=== PATIENT | female | born 1945 | race Two or more races ===

== ENCOUNTER 2021-12-27 21:03 | Inpatient (IN) | payer BC, MEDICARE ==
[~2021-12-27] VITALS: Ht 157.5 cm; Wt 51.7 kg
[2021-12-27 23:03] LABS: BASOPHILS % 0.6 % (0.0-2.0); EOSINOPHILS % 2.4 % (0.0-5.0); HEMATOCRIT. 35.8 % (36.0-48.0); HEMOGLOBIN. 11.4 g/dL (12.0-16.0); LYMPHOCYTES % 11.2 % (20.0-50.0); MEAN CORPUSCULAR HEMOGLOBIN 28.5 pg (28.0-32.0); MEAN CORPUSCULAR VOLUME 89.5 fL (81.0-99.0); MEAN PLATELET VOLUME 6.7 fl (7.4-10.4); MONOCYTES % 6.7 % (2.0-8.0); NEUTROPHILS % 79.1 % (40.0-76.0); PLATELET 322 x1000/uL (130-400); RED CELL DISTRIBUTION WIDTH 16.6 % (11.6-14.6)
[2021-12-27 23:11] LABS: CHLORIDE 101 mEq/L (98-107)
[2021-12-27 23:18] LABS: ETHANOL BLOOD < 10 mg/dL
[2021-12-28 01:45] LABS: *AMPHETAMINES SCREEN URINE NEGATIVE (NEGATIVE); *BARBITURATES SCREEN URINE NEGATIVE (NEGATIVE); *BENZODIAZEPINES SCREEN URINE NEGATIVE (NEGATIVE); *COCAINE SCREEN URINE NEGATIVE (NEGATIVE); CANNABINOID URINE SCREEN NEGATIVE (NEGATIVE); METHADONE URINE SCREEN NEGATIVE (NEGATIVE); OPIATES URINE SCREEN NEGATIVE (NEGATIVE); PHENCYCLIDINE URINE SCREEN NEGATIVE (NEGATIVE)
[2021-12-28] MEDS ORDERED: GUAIFENESIN 200MG/10ML SUGAR FREE UDC PO PRN (06:15)
[2021-12-28] MEDS ORDERED: ONDANSETRON HCL 4MG/2ML INJ IV PRN (06:15)
[2021-12-28] MEDS ORDERED: DOCUSATE SODIUM 100MG CAPSULE PO PRN (06:15)
[2021-12-28] MEDS ORDERED: NALOXONE HCL 0.4MG/ML VIAL IV PRN (06:30)
[2021-12-28 10:00] VITALS: BP 119/77
[2021-12-28] MEDS: ENOXAPARIN 40MG/0.4ML SYR SUBCUT SCH (10:53)
[2021-12-28] MEDS: HYDROCODONE/ACETAMINOPHEN 5/325MG TABLET PO PRN (10:53)
[2021-12-28] MEDS: AMLODIPINE 10MG TABLET PO SCH (10:54)
[2021-12-28] MEDS ORDERED: CEPH500C2 MT (11:44)
[2021-12-28] MEDS ORDERED: SUCR1TAB30 MT (11:44)
[2021-12-28] MEDS ORDERED: ASCO500C18 PO (11:44)
[2021-12-28] MEDS ORDERED: FLUT1DIS6 INH (11:44)
[2021-12-28] MEDS ORDERED: LEVO125T8 PO (11:44)
[2021-12-28] MEDS ORDERED: ASPI-1497 MT (11:44)
[2021-12-28] MEDS ORDERED: FLUO20TA29 PO (11:44)
[2021-12-28] MEDS ORDERED: LORA2ORA5 MT (11:44)
[2021-12-28] MEDS ORDERED: MONT10TA21 PO (11:44)
[2021-12-28] MEDS ORDERED: CARV3.1242 MT (11:44)
[2021-12-28] MEDS ORDERED: GABA-529 PO (11:44)
[2021-12-28] MEDS ORDERED: DOCU-138 MT (11:44)
[2021-12-28] MEDS ORDERED: MAGN250T10 PO (11:44)
[2021-12-28] MEDS ORDERED: BUPR300T52 MT (11:44)
[2021-12-28] MEDS ORDERED: LIP40 MT (11:44)
[2021-12-28] MEDS ORDERED: PROT40 MT (11:44)
[2021-12-28] MEDS ORDERED: UBID10CA4 MT (11:44)
[2021-12-28] MEDS ORDERED: IPRATROPIUM/ALBUTEROL 0.5-3(2.5)MG/3ML NEB HHN PRN (11:45)
[2021-12-28 12:00] VITALS: BP 115/80
[2021-12-28] MEDS: LEVETIRACETAM 500MG TABLET PO SCH ×2 (13:44→22:20)
[2021-12-28] MEDS: IPRATROPIUM/ALBUTEROL 0.5-3(2.5)MG/3ML NEB HHN PRN (14:11)
[2021-12-28 16:00] VITALS: BP 138/77
[2021-12-28 20:00] VITALS: BP 93/63
[2021-12-28] MEDS: TRAMADOL 50MG TABLET PO PRN (22:20)
[2021-12-28] MEDS: SODIUM CHLORIDE 0.45% 1,000 ML IV SCH (22:20)
[2021-12-29] VITALS: BP 116/69
[2021-12-29 04:00] VITALS: BP 119/65
[2021-12-29] MEDS: HYDROCODONE/ACETAMINOPHEN 5/325MG TABLET PO PRN ×2 (04:34→21:39)
[2021-12-29 06:50] LABS: BASOPHILS % 1.1 % (0.0-2.0); EOSINOPHILS % 3.2 % (0.0-5.0); HEMATOCRIT. 33.3 % (36.0-48.0); HEMOGLOBIN. 10.9 g/dL (12.0-16.0); MEAN CORPUSCULAR VOLUME 88.8 fL (81.0-99.0); MEAN PLATELET VOLUME 7.2 fl (7.4-10.4); MONOCYTES % 8.4 % (2.0-8.0); NEUTROPHILS % 72.3 % (40.0-76.0); PLATELET 300 x1000/uL (130-400); RED BLOOD CELL COUNT 3.75 mill/uL (4.2-5.4); RED CELL DISTRIBUTION WIDTH 17.8 % (11.6-14.6)
[2021-12-29 07:06] LABS: CHLORIDE 103 mEq/L (98-107)
[2021-12-29 07:20] LABS: HDL CHOLESTEROL 50 mg/dL (40-59); LDL CHOLESTEROL 72 mg/dL (5-100)
[2021-12-29 07:32] LABS: VITAMIN B12 SERUM 627 pg/mL (211-911)
[2021-12-29 07:52] VITALS: BP 125/67
[2021-12-29] MEDS: LEVETIRACETAM 500MG TABLET PO SCH ×2 (09:14→20:10)
[2021-12-29] MEDS: ENOXAPARIN 40MG/0.4ML SYR SUBCUT SCH (09:14)
[2021-12-29] MEDS: AMLODIPINE 10MG TABLET PO SCH (09:14)
[2021-12-29] MEDS: SODIUM CHLORIDE 0.45% 1,000 ML IV SCH ×2 (09:15→22:15)
[2021-12-29 12:00] VITALS: BP 101/51
[2021-12-29] MEDS ORDERED: MELA3TAB71 PO (14:34)
[2021-12-29] MEDS ORDERED: KEPP500 PO (14:34)
[2021-12-29 16:00] VITALS: BP 122/68
[2021-12-29 17:22] LABS: T4 FREE 1.33 ng/dL (0.76-1.46)
[2021-12-29 20:00] VITALS: BP 112/67
[2021-12-29] MEDS: IPRATROPIUM/ALBUTEROL 0.5-3(2.5)MG/3ML NEB HHN PRN (22:04)
[2021-12-30] VITALS: BP 110/63
[2021-12-30] MEDS: ACETAMINOPHEN 325MG TABLET PO PRN ×2 (05:52→10:19)
[2021-12-30 08:00] VITALS: BP 120/69
[2021-12-30] MEDS: AMLODIPINE 10MG TABLET PO SCH (09:02)
[2021-12-30] MEDS: LEVETIRACETAM 500MG TABLET PO SCH ×2 (09:02→20:25)
[2021-12-30] MEDS: ENOXAPARIN 40MG/0.4ML SYR SUBCUT SCH (09:03)
[2021-12-30 12:00] VITALS: BP 114/66
[2021-12-30] MEDS: TRAMADOL 50MG TABLET PO PRN ×2 (14:12→20:26)
[2021-12-30] MEDS: IPRATROPIUM/ALBUTEROL 0.5-3(2.5)MG/3ML NEB HHN PRN (14:50)
[2021-12-30 16:00] VITALS: BP 110/67
[2021-12-30 20:00] VITALS: BP 112/67
[2021-12-30] MEDS: TRAZODONE HCL 50MG TABLET PO SCH (20:25)
[2021-12-31] VITALS: BP 107/63
[2021-12-31] MEDS: HYDROCODONE/ACETAMINOPHEN 5/325MG TABLET PO PRN ×3 (00:33→20:47)
[2021-12-31 04:00] VITALS: BP 124/60
[2021-12-31] MEDS: IPRATROPIUM/ALBUTEROL 0.5-3(2.5)MG/3ML NEB HHN PRN (06:16)
[2021-12-31 08:00] VITALS: BP 119/64
[2021-12-31] MEDS ORDERED: DULOXETINE HCL 20MG DR CAPSULE PO SCH (09:00)
[2021-12-31] MEDS: ENOXAPARIN 40MG/0.4ML SYR SUBCUT SCH (09:56)
[2021-12-31] MEDS: LEVETIRACETAM 500MG TABLET PO SCH ×2 (09:56→20:44)
[2021-12-31] MEDS: AMLODIPINE 10MG TABLET PO SCH (09:57)
[2021-12-31] MEDS: MAGNESIUM/ALUMINUM HYDROXIDE/SIMETHICONE 30ML UDC PO PRN (11:25)
[2021-12-31 12:00] VITALS: BP 122/59
[2021-12-31] MEDS ORDERED: FLUOXETINE HCL 20MG CAPSULE PO SCH (15:00)
[2021-12-31] MEDS ORDERED: BUPROPION HCL 150MG TABLET XL 24HR PO SCH (15:00)
[2021-12-31 16:00] VITALS: BP 103/58
[2021-12-31] MEDS: MONTELUKAST SODIUM 10MG TABLET PO SCH (18:58)
[2021-12-31 20:00] VITALS: BP 115/85
[2021-12-31] MEDS: TRAZODONE HCL 50MG TABLET PO SCH (20:44)
[2022-01-01] VITALS: BP 123/84
[2022-01-01] MEDS: SODIUM CHLORIDE 0.45% 1,000 ML IV SCH ×2 (03:35→16:55)
[2022-01-01 04:00] VITALS: BP 110/72
[2022-01-01] MEDS: TRAMADOL 50MG TABLET PO PRN (06:51)
[2022-01-01 08:00] VITALS: BP 118/58
[2022-01-01] MEDS: LEVETIRACETAM 500MG TABLET PO SCH ×2 (08:40→22:15)
[2022-01-01] MEDS: PANTOPRAZOLE 40MG DR TABLET PO SCH (08:40)
[2022-01-01] MEDS: LEVOTHYROXINE SODIUM 125MCG TABLET PO SCH (08:40)
[2022-01-01] MEDS: AMLODIPINE 10MG TABLET PO SCH (08:40)
[2022-01-01] MEDS: ENOXAPARIN 30MG/0.3ML SYR SUBCUT SCH (08:41)
[2022-01-01] MEDS: GABAPENTIN 100MG CAPSULE PO SCH (08:43)
[2022-01-01 12:00] VITALS: BP 124/64
[2022-01-01 15:36] VITALS: BP 101/56
[2022-01-01] MEDS: HYDROCODONE/ACETAMINOPHEN 5/325MG TABLET PO PRN (15:38)
[2022-01-01] MEDS: MONTELUKAST SODIUM 10MG TABLET PO SCH (16:09)
[2022-01-01 20:00] VITALS: BP 111/61
[2022-01-01] MEDS: IPRATROPIUM/ALBUTEROL 0.5-3(2.5)MG/3ML NEB HHN PRN (20:57)
[2022-01-01] MEDS: TRAZODONE HCL 50MG TABLET PO SCH (22:15)
[2022-01-02] VITALS: BP 109/59
[2022-01-02] MEDS: HYDROCODONE/ACETAMINOPHEN 5/325MG TABLET PO PRN ×3 (01:27→20:53)
[2022-01-02 04:00] VITALS: BP 116/49
[2022-01-02] MEDS: SODIUM CHLORIDE 0.45% 1,000 ML IV SCH (05:46)
[2022-01-02] MEDS: PANTOPRAZOLE 40MG DR TABLET PO SCH (06:24)
[2022-01-02] MEDS: LEVOTHYROXINE SODIUM 125MCG TABLET PO SCH (06:24)
[2022-01-02 08:00] VITALS: BP 131/65
[2022-01-02] MEDS: ENOXAPARIN 30MG/0.3ML SYR SUBCUT SCH (09:59)
[2022-01-02] MEDS: LEVETIRACETAM 500MG TABLET PO SCH ×2 (09:59→20:52)
[2022-01-02] MEDS: GABAPENTIN 100MG CAPSULE PO SCH (09:59)
[2022-01-02] MEDS: AMLODIPINE 10MG TABLET PO SCH (09:59)
[2022-01-02 11:59] VITALS: BP 109/61
[2022-01-02] MEDS ORDERED: NALOXONE HCL 0.4MG/ML VIAL IV PRN (12:15)
[2022-01-02 16:00] VITALS: BP 102/48
[2022-01-02] MEDS: MONTELUKAST SODIUM 10MG TABLET PO SCH (17:56)
[2022-01-02 20:00] VITALS: BP 116/60
[2022-01-02] MEDS: TRAZODONE HCL 50MG TABLET PO SCH (20:53)
[2022-01-03] VITALS: BP 111/61
[2022-01-03] MEDS: HYDROCODONE/ACETAMINOPHEN 5/325MG TABLET PO PRN ×3 (01:05→21:23)
[2022-01-03 04:00] VITALS: BP 100/55
[2022-01-03] MEDS: LEVOTHYROXINE SODIUM 125MCG TABLET PO SCH (06:43)
[2022-01-03 08:00] VITALS: BP 112/64
[2022-01-03] MEDS: LEVETIRACETAM 500MG TABLET PO SCH ×2 (09:46→21:19)
[2022-01-03] MEDS: AMLODIPINE 10MG TABLET PO SCH (09:47)
[2022-01-03] MEDS: FAMOTIDINE 20MG TABLET PO SCH (09:47)
[2022-01-03] MEDS: GABAPENTIN 100MG CAPSULE PO SCH (10:05)
[2022-01-03] MEDS: ENOXAPARIN 30MG/0.3ML SYR SUBCUT SCH (10:06)
[2022-01-03 12:00] VITALS: BP 116/54
[2022-01-03 16:00] VITALS: BP 119/68
[2022-01-03] MEDS: MONTELUKAST SODIUM 10MG TABLET PO SCH (17:59)
[2022-01-03] MEDS: IPRATROPIUM/ALBUTEROL 0.5-3(2.5)MG/3ML NEB HHN PRN (19:47)
[2022-01-03 20:00] VITALS: BP 100/55
[2022-01-03] MEDS: TRAZODONE HCL 50MG TABLET PO SCH (21:19)
[2022-01-04] VITALS: BP 115/61
[2022-01-04 05:00] VITALS: BP 109/51
[2022-01-04] MEDS: HYDROCODONE/ACETAMINOPHEN 5/325MG TABLET PO PRN ×3 (05:47→21:06)
[2022-01-04] MEDS: LEVOTHYROXINE SODIUM 125MCG TABLET PO SCH (06:29)
[2022-01-04 08:00] VITALS: BP 116/59
[2022-01-04] MEDS: IPRATROPIUM/ALBUTEROL 0.5-3(2.5)MG/3ML NEB HHN PRN ×3 (08:21→20:34)
[2022-01-04] MEDS: LEVETIRACETAM 500MG TABLET PO SCH (09:08)
[2022-01-04] MEDS: ACETAMINOPHEN 325MG TABLET PO PRN (09:08)
[2022-01-04] MEDS: FAMOTIDINE 20MG TABLET PO SCH (09:08)
[2022-01-04] MEDS: AMLODIPINE 10MG TABLET PO SCH (09:09)
[2022-01-04] MEDS: GABAPENTIN 100MG CAPSULE PO SCH (09:09)
[2022-01-04] MEDS: ENOXAPARIN 30MG/0.3ML SYR SUBCUT SCH (09:10)
[2022-01-04 12:00] VITALS: BP 100/55
[2022-01-04 16:00] VITALS: BP 98/48
[2022-01-04 16:57] LABS: BASOPHILS % 1.5 % (0.0-2.0); EOSINOPHILS % 5.5 % (0.0-5.0); HEMOGLOBIN. 9.9 g/dL (12.0-16.0); LYMPHOCYTES % 14.2 % (20.0-50.0); MEAN CORPUSCULAR HEMOGLOBIN 29.4 pg (28.0-32.0); MEAN CORPUSCULAR VOLUME 91.9 fL (81.0-99.0); MEAN PLATELET VOLUME 6.9 fl (7.4-10.4); NEUTROPHILS % 70.8 % (40.0-76.0); PLATELET 216 x1000/uL (130-400); RED BLOOD CELL COUNT 3.37 mill/uL (4.2-5.4); RED CELL DISTRIBUTION WIDTH 19.2 % (11.6-14.6)
[2022-01-04 17:32] LABS: CHLORIDE 106 mEq/L (98-107)
[2022-01-04] MEDS: MONTELUKAST SODIUM 10MG TABLET PO SCH (17:35)
[2022-01-04 20:00] VITALS: BP 110/55
[2022-01-04] MEDS: TRAZODONE HCL 50MG TABLET PO SCH (21:06)
[2022-01-05] VITALS: BP 114/57
[2022-01-05] MEDS: SODIUM CHLORIDE 0.45% 1,000 ML IV SCH ×2 (00:26→14:15)
[2022-01-05] MEDS: HYDROCODONE/ACETAMINOPHEN 5/325MG TABLET PO PRN ×4 (01:25→17:34)
[2022-01-05 04:00] VITALS: BP 104/59
[2022-01-05] MEDS: LEVOTHYROXINE SODIUM 125MCG TABLET PO SCH (06:37)
[2022-01-05 08:00] VITALS: BP 105/53
[2022-01-05] MEDS: AMLODIPINE 10MG TABLET PO SCH (09:00)
[2022-01-05] MEDS: LEVETIRACETAM 250MG TABLET PO SCH ×2 (10:00→20:45)
[2022-01-05] MEDS: GABAPENTIN 100MG CAPSULE PO SCH (10:00)
[2022-01-05] MEDS: FAMOTIDINE 20MG TABLET PO SCH (10:00)
[2022-01-05] MEDS: ENOXAPARIN 30MG/0.3ML SYR SUBCUT SCH (10:01)
[2022-01-05 12:00] VITALS: BP 110/48
[2022-01-05] MEDS: FLUOXETINE HCL 20MG CAPSULE PO SCH (14:30)
[2022-01-05] MEDS: OLANZAPINE 2.5MG TABLET PO SCH (14:30)
[2022-01-05 16:00] VITALS: BP 115/54
[2022-01-05] MEDS: MONTELUKAST SODIUM 10MG TABLET PO SCH (17:34)
[2022-01-05 20:00] VITALS: BP 107/55
[2022-01-05] MEDS: TRAZODONE HCL 50MG TABLET PO SCH (20:45)
[2022-01-06] VITALS: BP 98/46
[2022-01-06] MEDS: HYDROCODONE/ACETAMINOPHEN 5/325MG TABLET PO PRN ×5 (00:27→22:36)
[2022-01-06] MEDS: SODIUM CHLORIDE 0.45% 1,000 ML IV SCH ×2 (03:35→16:55)
[2022-01-06 04:00] VITALS: BP 119/53
[2022-01-06] MEDS: IPRATROPIUM/ALBUTEROL 0.5-3(2.5)MG/3ML NEB HHN PRN ×3 (05:18→12:23)
[2022-01-06 08:00] VITALS: BP 115/54
[2022-01-06] MEDS: FLUOXETINE HCL 20MG CAPSULE PO SCH (09:46)
[2022-01-06] MEDS: LEVETIRACETAM 250MG TABLET PO SCH ×2 (09:47→22:36)
[2022-01-06] MEDS: AMLODIPINE 10MG TABLET PO SCH (09:47)
[2022-01-06] MEDS: ENOXAPARIN 30MG/0.3ML SYR SUBCUT SCH (09:47)
[2022-01-06] MEDS: LEVOTHYROXINE SODIUM 125MCG TABLET PO SCH (09:47)
[2022-01-06] MEDS: FAMOTIDINE 20MG TABLET PO SCH (09:47)
[2022-01-06] MEDS: OLANZAPINE 2.5MG TABLET PO SCH (09:51)
[2022-01-06] MEDS: GABAPENTIN 100MG CAPSULE PO SCH (09:51)
[2022-01-06 12:00] VITALS: BP 112/52
[2022-01-06 16:00] VITALS: BP 132/45
[2022-01-06] MEDS: MONTELUKAST SODIUM 10MG TABLET PO SCH (18:13)
[2022-01-06 20:00] VITALS: BP 109/51
[2022-01-06] MEDS: TRAZODONE HCL 50MG TABLET PO SCH (22:36)
[2022-01-07] VITALS: BP 117/80
[2022-01-07] MEDS: HYDROCODONE/ACETAMINOPHEN 5/325MG TABLET PO PRN ×2 (03:03→09:57)
[2022-01-07] MEDS: IPRATROPIUM/ALBUTEROL 0.5-3(2.5)MG/3ML NEB HHN PRN ×4 (03:27→20:56)
[2022-01-07 04:00] VITALS: BP 103/58
[2022-01-07] MEDS: SODIUM CHLORIDE 0.45% 1,000 ML IV SCH ×2 (05:41→19:35)
[2022-01-07] MEDS: LEVOTHYROXINE SODIUM 125MCG TABLET PO SCH (07:20)
[2022-01-07 08:00] VITALS: BP 113/51
[2022-01-07] MEDS: OLANZAPINE 2.5MG TABLET PO SCH (08:53)
[2022-01-07] MEDS: LEVETIRACETAM 250MG TABLET PO SCH ×2 (08:53→20:48)
[2022-01-07] MEDS: FLUOXETINE HCL 20MG CAPSULE PO SCH (08:54)
[2022-01-07] MEDS: AMLODIPINE 10MG TABLET PO SCH (08:54)
[2022-01-07] MEDS: ENOXAPARIN 30MG/0.3ML SYR SUBCUT SCH (08:55)
[2022-01-07] MEDS: FAMOTIDINE 20MG TABLET PO SCH (09:04)
[2022-01-07] MEDS: GABAPENTIN 100MG CAPSULE PO SCH (09:52)
[2022-01-07 12:00] VITALS: BP 93/41
[2022-01-07 16:00] VITALS: BP 114/59
[2022-01-07] MEDS: MONTELUKAST SODIUM 10MG TABLET PO SCH (16:34)
[2022-01-07] MEDS: ACETAMINOPHEN 325MG TABLET PO PRN ×2 (16:38→20:48)
[2022-01-07 20:00] VITALS: BP 106/56
[2022-01-07] MEDS: MAGNESIUM/ALUMINUM HYDROXIDE/SIMETHICONE 30ML UDC PO PRN (20:48)
[2022-01-07] MEDS: TRAZODONE HCL 50MG TABLET PO SCH (20:48)
[2022-01-08] VITALS: BP 107/55
[2022-01-08] MEDS: ACETAMINOPHEN 325MG TABLET PO PRN ×2 (01:13→05:07)
[2022-01-08] MEDS: IPRATROPIUM/ALBUTEROL 0.5-3(2.5)MG/3ML NEB HHN PRN ×4 (01:13→21:31)
[2022-01-08 04:00] VITALS: BP 103/54
[2022-01-08 08:00] VITALS: BP 115/67
[2022-01-08] MEDS: ENOXAPARIN 30MG/0.3ML SYR SUBCUT SCH (10:33)
[2022-01-08] MEDS: AMLODIPINE 10MG TABLET PO SCH (10:33)
[2022-01-08] MEDS: FAMOTIDINE 20MG TABLET PO SCH (10:34)
[2022-01-08] MEDS: LEVETIRACETAM 250MG TABLET PO SCH ×2 (10:34→22:01)
[2022-01-08] MEDS: OLANZAPINE 2.5MG TABLET PO SCH (10:34)
[2022-01-08] MEDS: LEVOTHYROXINE SODIUM 125MCG TABLET PO SCH (10:34)
[2022-01-08] MEDS: FLUOXETINE HCL 20MG CAPSULE PO SCH (10:34)
[2022-01-08] MEDS: GABAPENTIN 100MG CAPSULE PO SCH (10:34)
[2022-01-08] MEDS: SODIUM CHLORIDE 0.45% 1,000 ML IV SCH ×2 (10:35→22:15)
[2022-01-08 12:00] VITALS: BP 118/55
[2022-01-08] MEDS ORDERED: NALOXONE HCL 0.4MG/ML VIAL IV PRN (12:30)
[2022-01-08] MEDS: TRAMADOL 50MG TABLET PO PRN ×2 (14:43→22:03)
[2022-01-08 16:00] VITALS: BP 108/55
[2022-01-08] MEDS: MONTELUKAST SODIUM 10MG TABLET PO SCH (18:11)
[2022-01-08 20:00] VITALS: BP 111/48
[2022-01-08] MEDS: TRAZODONE HCL 50MG TABLET PO SCH (22:04)
[2022-01-09] VITALS: BP 108/50
[2022-01-09] MEDS: ACETAMINOPHEN 325MG TABLET PO PRN (00:32)
[2022-01-09] MEDS: IPRATROPIUM/ALBUTEROL 0.5-3(2.5)MG/3ML NEB HHN PRN ×4 (00:33→23:56)
[2022-01-09 04:00] VITALS: BP 123/55
[2022-01-09] MEDS: LEVOTHYROXINE SODIUM 125MCG TABLET PO SCH (07:43)
[2022-01-09] MEDS: TRAMADOL 50MG TABLET PO PRN (07:45)
[2022-01-09 08:00] VITALS: BP 117/61
[2022-01-09] MEDS: ENOXAPARIN 30MG/0.3ML SYR SUBCUT SCH (09:14)
[2022-01-09] MEDS: AMLODIPINE 10MG TABLET PO SCH (09:15)
[2022-01-09] MEDS: OLANZAPINE 2.5MG TABLET PO SCH (09:15)
[2022-01-09] MEDS: GABAPENTIN 100MG CAPSULE PO SCH (09:15)
[2022-01-09] MEDS: LEVETIRACETAM 250MG TABLET PO SCH ×2 (09:18→22:17)
[2022-01-09] MEDS: FAMOTIDINE 20MG TABLET PO SCH (09:18)
[2022-01-09] MEDS: FLUOXETINE HCL 20MG CAPSULE PO SCH (09:18)
[2022-01-09] MEDS: HYDROCODONE/APAP 7.5/325MG 1 TAB TABLET PO PRN ×3 (10:49→23:53)
[2022-01-09] MEDS: SODIUM CHLORIDE 0.45% 1,000 ML IV SCH ×2 (11:35→22:18)
[2022-01-09 11:44] LABS: BASOPHILS % 1.4 % (0.0-2.0); HEMATOCRIT. 30.1 % (36.0-48.0); HEMOGLOBIN. 9.6 g/dL (12.0-16.0); LYMPHOCYTES % 20.2 % (20.0-50.0); MEAN CORPUSCULAR HEMOGLOBIN 29.6 pg (28.0-32.0); MEAN CORPUSCULAR VOLUME 92.7 fL (81.0-99.0); MEAN PLATELET VOLUME 6.6 fl (7.4-10.4); MONOCYTES % 9.8 % (2.0-8.0); NEUTROPHILS % 60.6 % (40.0-76.0); PLATELET 221 x1000/uL (130-400); RED BLOOD CELL COUNT 3.24 mill/uL (4.2-5.4); RED CELL DISTRIBUTION WIDTH 19.4 % (11.6-14.6)
[2022-01-09 11:56] LABS: CHLORIDE 104 mEq/L (98-107)
[2022-01-09 12:00] VITALS: BP 105/51
[2022-01-09 16:00] VITALS: BP 119/60
[2022-01-09] MEDS: MONTELUKAST SODIUM 10MG TABLET PO SCH (18:04)
[2022-01-09 20:00] VITALS: BP 111/54
[2022-01-09] MEDS: HYDROXYZINE 25MG TABLET PO SCH (21:00)
[2022-01-09] MEDS: TRAZODONE HCL 50MG TABLET PO SCH (22:15)
[2022-01-10] VITALS: BP 102/56
[2022-01-10 04:00] VITALS: BP 102/47
[2022-01-10] MEDS: HYDROCODONE/APAP 7.5/325MG 1 TAB TABLET PO PRN ×3 (06:27→22:38)
[2022-01-10] MEDS: LEVOTHYROXINE SODIUM 125MCG TABLET PO SCH (06:29)
[2022-01-10] MEDS: IPRATROPIUM/ALBUTEROL 0.5-3(2.5)MG/3ML NEB HHN PRN ×4 (07:44→20:46)
[2022-01-10] MEDS: AMLODIPINE 10MG TABLET PO SCH (09:00)
[2022-01-10] MEDS: ENOXAPARIN 30MG/0.3ML SYR SUBCUT SCH (09:36)
[2022-01-10] MEDS: FAMOTIDINE 20MG TABLET PO SCH (09:37)
[2022-01-10] MEDS: LEVETIRACETAM 250MG TABLET PO SCH ×2 (09:37→21:00)
[2022-01-10] MEDS: OLANZAPINE 2.5MG TABLET PO SCH (09:37)
[2022-01-10] MEDS: FLUOXETINE HCL 20MG CAPSULE PO SCH (09:37)
[2022-01-10] MEDS ORDERED: TRAZ-251 PO (12:45)
[2022-01-10] MEDS ORDERED: KEPP250 PO (12:45)
[2022-01-10] MEDS ORDERED: HYDR-3735 PO (12:45)
[2022-01-10] MEDS ORDERED: OLAN2.5T29 PO (12:45)
[2022-01-10] MEDS: SODIUM CHLORIDE 0.45% 1,000 ML IV SCH (14:15)
[2022-01-10 16:00] VITALS: BP 114/56
[2022-01-10] MEDS: MONTELUKAST SODIUM 10MG TABLET PO SCH (17:49)
[2022-01-10 20:00] VITALS: BP 107/57
[2022-01-10] MEDS: HYDROXYZINE 25MG TABLET PO SCH (21:00)
[2022-01-10] MEDS: TRAZODONE HCL 50MG TABLET PO SCH (21:00)
[2022-01-11] VITALS: BP 110/60
[2022-01-11] MEDS: SODIUM CHLORIDE 0.45% 1,000 ML IV SCH (03:35)
[2022-01-11 04:00] VITALS: BP 112/62
[2022-01-11] MEDS: HYDROCODONE/APAP 7.5/325MG 1 TAB TABLET PO PRN ×3 (04:58→22:20)
[2022-01-11] MEDS: IPRATROPIUM/ALBUTEROL 0.5-3(2.5)MG/3ML NEB HHN PRN ×3 (06:05→19:46)
[2022-01-11] MEDS: LEVOTHYROXINE SODIUM 125MCG TABLET PO SCH (06:24)
[2022-01-11 08:00] VITALS: BP 105/46
[2022-01-11] MEDS: FAMOTIDINE 20MG TABLET PO SCH (09:57)
[2022-01-11] MEDS: ENOXAPARIN 30MG/0.3ML SYR SUBCUT SCH (09:57)
[2022-01-11] MEDS: LEVETIRACETAM 250MG TABLET PO SCH ×2 (09:57→21:00)
[2022-01-11] MEDS: OLANZAPINE 2.5MG TABLET PO SCH (09:57)
[2022-01-11] MEDS: AMLODIPINE 10MG TABLET PO SCH (09:58)
[2022-01-11] MEDS: FLUOXETINE HCL 20MG CAPSULE PO SCH (09:58)
[2022-01-11 12:00] VITALS: BP 109/62
[2022-01-11] MEDS: ALBUTEROL (0.083%) 2.5MG/3ML NEB HHN SCH ×2 (15:58→22:30)
[2022-01-11 16:00] VITALS: BP 103/52
[2022-01-11] MEDS: MONTELUKAST SODIUM 10MG TABLET PO SCH (18:20)
[2022-01-11 20:00] VITALS: BP 115/57
[2022-01-11] MEDS: TRAZODONE HCL 50MG TABLET PO SCH (21:00)
[2022-01-11] MEDS: HYDROXYZINE 25MG TABLET PO SCH (21:00)
[2022-01-12 02:00] VITALS: BP 109/69
[2022-01-12] MEDS: HYDROCODONE/APAP 7.5/325MG 1 TAB TABLET PO PRN ×2 (02:25→06:38)
[2022-01-12] MEDS: ALBUTEROL (0.083%) 2.5MG/3ML NEB HHN SCH ×2 (02:27→08:33)
[2022-01-12 04:00] VITALS: BP 128/60
[2022-01-12] MEDS: LEVOTHYROXINE SODIUM 125MCG TABLET PO SCH (06:38)
[2022-01-12 08:00] VITALS: BP 124/50
[2022-01-12] MEDS: OLANZAPINE 2.5MG TABLET PO SCH (09:01)
[2022-01-12] MEDS: FAMOTIDINE 20MG TABLET PO SCH (09:01)
[2022-01-12] MEDS: FLUOXETINE HCL 20MG CAPSULE PO SCH (09:01)
[2022-01-12] MEDS: AMLODIPINE 10MG TABLET PO SCH (09:02)
[2022-01-12] MEDS: LEVETIRACETAM 250MG TABLET PO SCH (09:02)
[2022-01-12] MEDS: ENOXAPARIN 30MG/0.3ML SYR SUBCUT SCH (09:03)
[2022-01-12 09:34] VITALS: BP 124/50
== END 2022-01-12 11:14 | disposition home or self-care (01) | DRG 101 ==
LOC: ER 21:03 → 6WST 12-28 03:13 → ENRESERV 12-28 08:41 → 6EST 01-06 12:55
PROVIDERS: ADMIT Hospitalist; ATTEND Hospitalist
DX: G40.909 Epilepsy, unspecified, not intractable, without status epilepticus (principal); E44.1 Mild protein-calorie malnutrition; I69.354 Hemiplegia and hemiparesis following cerebral infarction affecting left non-dominant side; F33.9 Major depressive disorder, recurrent, unspecified; I10 Essential (primary) hypertension; K21.9 Gastro-esophageal reflux disease without esophagitis; Z20.822 Contact with and (suspected) exposure to COVID-19; J43.9 Emphysema, unspecified; E03.9 Hypothyroidism, unspecified; D72.829 Elevated white blood cell count, unspecified; G47.00 Insomnia, unspecified; R51.9 Headache, unspecified; F41.9 Anxiety disorder, unspecified; Z88.2 Allergy status to sulfonamides; Z95.810 Presence of automatic (implantable) cardiac defibrillator; Z68.20 Body mass index [BMI] 20.0-20.9, adult; Z79.899 Other long term (current) drug therapy
CPT/HCPCS: 36415; 71045; 80053; 80061; 80305; 80320; 82607; 83605; 83735; 83880; 84134; 84439; 84443; 84484; 85025; 87426; 93005; 93970; 94640; 95816; 97162; 97164; 97166; 99285; C1893; C9803; J1650; G0480